=== PATIENT | female | born 1955 | race Caucasian/White ===

== ENCOUNTER 2016-07-29 13:22 | Emergency (ER) | payer MEDICARE, MEDICAID ==
[2016-07-29] MEDS ORDERED: methylPREDNISolone Sodium Succinate 125 MG/2 ML SDV IVPUSH ONE (13:49)
[2016-07-29] MEDS ORDERED: Albuterol/Ipratropium 3.0-0.5 MG/3 ML Neb Soln NEB ONE (13:49)
--- NOTE | 2016-07-29 13:50 | EDM.PDOC ---
ED HPI GENERAL MEDICAL PROBLEM - General Chief Complaint: Respiratory Problem Stated Complaint: STUFFY,CONGESTED,COUGHING UP PHLEM Time Seen by Provider: 07/29/16 13:49 Source of Information: Reports: Patient - History of Present Illness INITIAL COMMENTS - FREE TEXT/NARRATIVE: HISTORY AND PHYSICAL: History of present illness: Patient presents with productive cough and sore throat for 2 weeks former smoking history has not smoked for at least 3 years No fever nausea vomiting chills sweats Review of systems: As per history of present illness and below otherwise all systems reviewed and negative. Past medical history: As per history of present illness and as reviewed below otherwise noncontributory. Surgical history: As per history of present illness and as reviewed below otherwise noncontributory. Social history: No reported history of drug or alcohol abuse. Family history: As per history of present illness and as reviewed below otherwise noncontributory. Physical exam: HEENT: Atraumatic, normocephalic, pupils reactive, negative for conjunctival pallor or scleral icterus, mucous membranes moist, throat clear, neck supple, nontender, trachea midline. Lungs: Clear to auscultation, breath sounds equal bilaterally, chest nontender. Heart: S1S2, regular, negative for clicks, rubs, or JVD. Abdomen: Soft, nondistended, nontender. Negative for masses or hepatosplenomegaly. Negative for costovertebral tenderness. Pelvis: Stable nontender. Genitourinary: Deferred. Rectal: Deferred. Extremities: Atraumatic, negative for cords or calf pain. Neurovascular unremarkable. Neuro: Awake, alert, oriented. Cranial nerves II through XII unremarkable. Cerebellum unremarkable. Motor and sensory unremarkable throughout. Exam nonfocal. Diagnostics: [] Chest 2 views Therapeutics: [] Dual neb Solu-Medrol 125 mg IM Z-Tony 250 mg dosing Medrol Dosepak HFA Impression: [] Acute bronchitis Slight infiltrate on chest x-ray we'll follow radiology interpretation Definitive disposition and diagnosis as appropriate pending reevaluation and review of above. - Related Data Allergies Allergy/AdvReac Type Severity Reaction Status Date / Time codeine Allergy Hives Verified 07/29/16 13:47 ketorolac [From Toradol] Allergy Excitabilit Verified 07/29/16 13:47 y Home Meds: Home Meds Lisinopril/Hydrochlorothiazide [Lisinopril-Hctz 20-12.5 mg Tab] 1 tab PO DAILY 07/29/16 [History] Methadone 20 mg PO BID 07/29/16 [History] ED ROS GENERAL - Review of Systems Review Of Systems: ROS reveals no pertinent complaints other than HPI. ED EXAM, GENERAL - Physical Exam Exam: See Below Course - Vital Signs Last Recorded V/S: Last Vital Signs Temp 36.2 C 07/29/16 13:44 Pulse 64 07/29/16 13:44 Resp 18 07/29/16 13:44 BP 154/87 H 07/29/16 13:44 Pulse Ox 93 L 07/29/16 13:44 - Orders/Labs/Meds Orders: Active Orders 24 hr Category Date Time Status RT Aerosol Therapy [RC] ASDIRECTED Care 07/29/16 13:49 Active Chest 2V [CR] Stat Exams 07/29/16 13:47 Taken CULTURE STREP A CONFIRMATION [RM] Stat Lab 07/29/16 14:35 Results STREP SCRN A RAPID W CULT CONF [RM] Stat Lab 07/29/16 14:35 Results Meds: Medications Discontinued Medications Generic Name Dose Route Start Last Admin Trade Name Isabel PRN Reason Stop Dose Admin Albuterol/Ipratropium 3 ml 07/29/16 13:49 07/29/16 14:18 Duoneb 3.0-0.5 Mg/3 Ml NEB 07/29/16 13:50 3 ml ONETIME ONE Administration Azithromycin 500 mg 07/29/16 15:02 Zithromax 200 Mg/5 Ml Susp PO 07/29/16 15:03 ONETIME ONE Methylprednisolone Sodium Succinate 125 mg 07/29/16 13:49 Solu-Medrol IVPUSH 07/29/16 13:50 ONETIME ONE Methylprednisolone Sodium Succinate 125 mg 07/29/16 14:45 07/29/16 14:48 Solu-Medrol IM 07/29/16 14:46 125 mg ONETIME ONE Administration Departure - Departure Time of Disposition: 15:08 Disposition: Home, Self-Care 01 Condition: good Clinical Impression: Acute bronchitis - Discharge Information Forms: ED Department Discharge Additional Instructions: Medication as prescribed Return if symptoms persist or worsen Followup with primary care as needed The following information is given to patients seen in the emergency department who are being discharged to home. This information is to outline your options for follow-up care. We provide all patients seen in our emergency department with a follow-up referral. The need for follow-up, as well as the timing and circumstances, are variable depending upon the specifics of your emergency department visit. If you don't have a primary care physician on staff, we will provide you with a referral. We always advise you to contact your personal physician following an emergency department visit to inform them of the circumstance of the visit and for follow-up with them and/or the need for any referrals to a consulting specialist. The emergency department will also refer you to a specialist when appropriate. This referral assures that you have the opportunity for follow-up care with a specialist. All of these measure are taken in an effort to provide you with optimal care, which includes your follow-up. Under all circumstances we always encourage you to contact your private physician who remains a resource for coordinating your care. When calling for follow-up care, please make the office aware that this follow-up is from your recent emergency room visit. If for any reason you are refused follow-up, please contact the [facility] emergency department at and asked to speak to the emergency department charge nurse. - My Orders Last 24 Hours: My Active Orders 07/29/16 13:47 Chest 2V [CR] Stat 07/29/16 13:49 RT Aerosol Therapy [RC] ASDIRECTED 07/29/16 14:35 CULTURE STREP A CONFIRMATION [RM] Stat STREP SCRN A RAPID W CULT CONF [RM] Stat - Assessment/Plan Last 24 Hours: My Active Orders 07/29/16 13:47 Chest 2V [CR] Stat 07/29/16 13:49 RT Aerosol Therapy [RC] ASDIRECTED 07/29/16 14:35 CULTURE STREP A CONFIRMATION [RM] Stat STREP SCRN A RAPID W CULT CONF [RM] Stat
[2016-07-29] MEDS ORDERED: methylPREDNISolone Sodium Succinate 125 MG/2 ML SDV IM ONE (14:45)
[2016-07-29] MEDS ORDERED: Azithromycin 200 MG/5 ML Susp 15 ML Bottle PO ONE (15:02)
[2016-07-29] MEDS ORDERED: Azithromycin 250 MG Tab PO ONE (15:14)
[2016-07-29 15:28] VITALS: BP 136/61
--- NOTE | 2016-07-30 16:47 | CR ---
EXAM DATE: 07/29/16 PATIENT'S AGE: 60 Patient: [facility] Facility: [place], [place] Site . Site : [id number] Study: XRay Chest [id number] 2:38:15 PM Ordering Physician: Shereen Dukes Final Report: HISTORY: Cough for 1 week. Findings: PA and lateral view of the chest is provided. No focal airspace consolidation is noted to suggest pneumonia. No pneumothorax is seen. Cardiac silhouette size is within normal limits. Postoperative changes are noted at the thoracolumbar junction with an acute kyphosis and a metallic implant. Impression: Negative study for pneumonia. Dictated by Tramaine Garcia MD @ Jul 29 2016 3:13PM (Electronic Signature) Report Signed by Proxy. WANDA
== END 2016-07-29 15:25 | disposition home or self-care (01) ==
LOC: MW.ED 13:22
DX: J20.9 Acute bronchitis, unspecified (principal); Z88.5 Allergy status to narcotic agent; Z88.6 Allergy status to analgesic agent; Z79.899 Other long term (current) drug therapy; Z87.891 Personal history of nicotine dependence
CPT/HCPCS: 71020; 87081; 87880; 94664; 96372; 99284; A9270; J2930